=== PATIENT | male | born 1970 | race Caucasian/White ===

== ENCOUNTER 2024-08-07 16:53 | Emergency (ER) | payer BC, SELFPAY ==
[2024-08-07 17:00] VITALS: BP 166/104
--- NOTE | 2024-08-07 18:04 | ED.GENMED ---
History of Present Illness
General
Chief Complaint: Fall
Source: patient and spouse
Exam Limitations: none
Time Seen by Provider: 08/07/24 17:17
Nursing documentation reviewed up to this point in time: agreed with
History of Present Illness
History of Present Illness:
54-year-old male presents emergency room complaining of falling last night and hitting his face on the concrete. He misjudged the step. No loss of consciousness. He did feel lightheaded. He hit his nose, and complains of upper jaw pain. He does
not take any blood thinners.
Past History
Past History
ED Past Medical History: Other (Crohn's disease)
ED Past Surgical History: None
Social History
Tobacco: Non-smoker
Alcohol: None
Drug: None
Personal:
Living: with family
Employment: Employed
Family History
Family History: Negative Diabetes or CAD
Review of Systems
Review of Systems
Allergies reviewed?: Yes
All Other Systems: Not applicable
Constitutional: Reports no symptoms
EENT: Reports no symptoms
Respiratory: Reports no symptoms
Cardiac: Reports no symptoms
ABD/GI: Reports no symptoms
: Reports no symptoms
Musculoskeletal: Reports no symptoms
Skin: Reports no symptoms
Neurological: Reports no symptoms
Endocrine: Reports no symptoms
Hematologic/Lymphatic: Reports no symptoms
Psychiatric: Reports no symptoms
Phy Exam
Physical Exam
Physical Exam:
Physical Exam
General: no apparent distress, not acutely ill
Neck: supple. no meningeal signs. normal posterior pharynx
Heart: s1/s2 regular rate and rhythm, no murmur. equal radial
pulses.
HEENT: Pupils equal round reactive to light, EOMI, abrasion nose
Lungs: no acute respiratory distress. clear bilaterally
Abdomen: normal bowel sounds. not tender. no CVAT
Neuro: alert and oriented. no focal neurological deficits cranial nerves II through XII intact
Skin: no rash
Psychiatric: well kept. interactive and cooperative
Extremities: no edema. no calf tenderness. negative homans. good distal pulses tenderness to palpation left distal third metacarpal
Course
Orders/Labs/Results
Orders:
Orders
08/07/24 18:03
CT Facial Bones W/o Iv Contras Urgent
Comment:
Reason For Exam: fall, hit face, jaw pain
CT Head W/o Iv Contrast Urgent
Comment:
Reason For Exam: fall, hit face
CR Hand - Right Min 3 Views Urgent
Reason For Exam: RIGHT HAND PAIN AFTER FALL.
Vital Signs
Initial and Last Documented VS:
Initial Vital Signs
Temp Pulse Resp BP Pulse Ox
97.8 F 108 17 166/104 97
08/07/24 17:00 08/07/24 17:00 08/07/24 17:00 08/07/24 17:00 08/07/24 17:00
Last Documented Vital Signs
Temp Pulse Resp BP Pulse Ox
98.4 F 85 16 142/88 95
08/07/24 18:43 08/07/24 18:43 08/07/24 18:43 08/07/24 18:43 08/07/24 18:43
MDM/Problems Addressed
Differential Diagnosis Includes:
Intracranial hemorrhage, hand fracture
MDM/Problems Addressed:
54-year-old male with fall, right hand contusion, nasal contusion and forehead contusion. No signs of intracranial hemorrhage, skull fracture and nasal bone fracture. No signs of right hand fracture. Stable for discharge.
*Radiology
Radiology exam reviewed: radiology read reviewed (Head and face CT no acute findings, right hand x-ray no fracture)
*Pulse Oximetry
Patient hypoxic: no
*Critical Care Note
Total Time (30-74mins, 75-104mins- exclusive of procedures): Not Applicable
Patient Management
Social determinants of health affecting care: Living situation
Escalation/DeEscalation of care consider admission/obs:
Admit not indicated
ED Attending Note
-
Portions of this chart may have been created with voice recognition software.� Occasional wrong word or��sound alike� substitutions may have occurred due to the inherent limitations of voice recognition software.
Discharge Plan
Departure
Patient Disposition: Home (Routine Discharge)
Date of Disposition: 08/07/24
Time of Disposition: 19:37
Patient with high blood pressure during this ER visit?: Yes
Condition: Good
Discharge Problem:
Contusion of nose, Contusion of hand, right
Instructions: Head Injury in Adults (DC), Contusion (DC), Preventing falls in adults, Skin Abrasions (DC)
Prescriptions:
No Action
No Current Medications
Referrals:
Anthony Corona, [Family Provider] - Call in 1-3 days for appt
Interventions
Interventions:
*Risk Screen - Suicide Last Done: 08/07/24 17:00
*General Assessment Last Done: 08/07/24 17:00
*Neglect/Abuse Screening Last Done: 08/07/24 17:00
ED- Fall Risk Assessment Last Done: 08/07/24 18:13
*ED COVID-19 Vaccine History Last Done: 08/07/24 17:00
ED-Musculoskeletal Assessment Last Done: 08/07/24 18:13
ED- Neurological Assessment Last Done: 08/07/24 18:13
ED-Skin Assessment Last Done: 08/07/24 18:13
Discharge Date and Time
Print Language: IRAQI
[2024-08-07 18:11] VITALS: BMI 37.2
[2024-08-07 18:43] VITALS: BP 142/88
[2024-08-07 19:55] VITALS: BP 132/80
[2024-08-07] MEDS: ADACEL 0.5 ML IM (19:57)
== END 2024-08-07 20:04 | disposition home or self-care (01) ==
LOC: EMR 16:53
PROVIDERS: EMERGENCY PHYSICIAN Emergency Medicine; FAMILY PHYSICIAN Family Medicine Sports Medicine
DX: S60.221A Contusion of right hand, initial encounter (principal); S00.33XA Contusion of nose, initial encounter; S00.83XA Contusion of other part of head, initial encounter; R68.84 Jaw pain; R42 Dizziness and giddiness; W19.XXXA Unspecified fall, initial encounter; Z23 Encounter for immunization; R03.0 Elevated blood-pressure reading, without diagnosis of hypertension; K50.90 Crohn's disease, unspecified, without complications; F17.290 Nicotine dependence, other tobacco product, uncomplicated
CPT/HCPCS: 99284; 90471; 70450; 70486; 73130; 90715

== ENCOUNTER → 2024-09-20 08:04 | Outpatient (REF) | payer OTHER, SELFPAY | LOC: HWRAD 08:04 | PROVIDERS: ATTENDING PHYSICIAN Family Medicine Sports Medicine | DX: M76.61 Achilles tendinitis, right leg (principal) | CPT/HCPCS: 73610 ==